=== PATIENT | female | born 1975 ===

== ENCOUNTER 2018-04-11 09:45 | Inpatient (IN) | payer OTHER ==
[~2018-04-11] VITALS: Ht 162.6 cm; Wt 3.2 kg
[~2018-04-11 09:45] MED LIST: TYLENOL-CODEINE1 TAB PO
[2018-04-19] MEDS ORDERED: AMOX-CLAV 875-1 EACH PO (18:49)
[2018-04-19] MEDS ORDERED: NAPROXEN500 MG PO (18:50)
[2018-04-19] MEDS ORDERED: CODE1TAB37 PO (18:51)
== END 2018-04-19 19:06 | DRG 765 ==
LOC: SURG-SUITE 04-13 06:24 → O/R 04-13 06:24 → OB/GYN 04-13 08:45 → SURG-SUITE 04-13 12:09 → OB/GYN 04-13 13:55 → SURG-SUITE 04-13 14:30
PROVIDERS: Obstetrics & Gynecology
PROC: 0UB70ZZ Excision of Bilateral Fallopian Tubes, Open Approach (ICD-10-PCS; 2018-04-13)
PROC: 4A1HXCZ Monitoring of Products of Conception, Cardiac Rate, External Approach (ICD-10-PCS; 2018-04-13)
PROC: 4A033R1 Measurement of Arterial Saturation, Peripheral, Percutaneous Approach (ICD-10-PCS; 2018-04-13)
PROC: 10D00Z1 Extraction of Products of Conception, Low, Open Approach (ICD-10-PCS; principal; 2018-04-13 08:45)
DX: O34.211 Maternal care for low transverse scar from previous cesarean delivery (principal); O23.43 Unspecified infection of urinary tract in pregnancy, third trimester; O75.82 Onset (spontaneous) of labor after 37 completed weeks of gestation but before 39 completed weeks gestation, with delivery by (planned) cesarean section; Z3A.38 38 weeks gestation of pregnancy; Z37.0 Single live birth; Z30.2 Encounter for sterilization; B95.2 Enterococcus as the cause of diseases classified elsewhere